=== PATIENT | female | born 1985 | race Caucasian/White ===

== ENCOUNTER 2017-04-13 11:47 | Emergency (ER) | payer OTHER ==
[2017-04-13 12:07] LABS: URINE HCG POC HCG NEGATIVE (Negative)
[2017-04-13 12:14] LABS: ADD MAN DIFF? NO
[2017-04-13 12:23] LABS: BASO % 1 % (0-3); EOS % 2 % (0-3); HEMATOCRIT 41.3 % (36.0-47.0); LYMPH # 2.4 x10^3/uL (1.0-4.8); LYMPH % 33 % (24-48); MEAN CORPUSCULAR HEMOGLOBIN 30 pg (25-35); MEAN CORPUSCULAR HGB CONC 34 g/dL (31-37); MEAN CORPUSCULAR VOLUME 88 fL (79-100); MONO % 6 % (0-9); NEUT % 59 % (31-73); PLATELET COUNT 398 x10^3/uL (140-400); RED BLOOD COUNT 4.69 x10^6/uL (3.50-5.40); RED CELL DISTRIBUTION WIDTH 12.7 % (11.5-14.5); WHITE BLOOD COUNT 7.2 x10^3/uL (4.0-11.0)
[2017-04-13 12:28] LABS: ANION GAP 9 (6-14); BLOOD UREA NITROGEN 10 mg/dL (7-20); CARBON DIOXIDE 27 mmol/L (21-32); CHLORIDE 102 mmol/L (98-107); GFR 64.3; GLUCOSE 101 mg/dL (70-99); POTASSIUM 3.6 mmol/L (3.5-5.1); SODIUM 138 mmol/L (136-145)
[2017-04-13 12:39] LABS: TROPONINI < 0.017 ng/mL (0.000-0.055)
== END 2017-04-13 16:14 | disposition home or self-care (01) ==
LOC: ER 11:47
DX: R07.89 Other chest pain (principal)
CPT/HCPCS: 36415; 71010; 80048; 81025; 84484; 85025; 85379; 93005; 99285-25